=== PATIENT | male | born 2000 | race Caucasian/White ===

== ENCOUNTER 2021-06-27 22:23 | Emergency (ER) | payer MEDICAID ==
[~2021-06-27] VITALS: Ht 185.4 cm; Wt 84.0 kg
[2021-06-27 23:56] VITALS: BP 138/84
== END 2021-06-28 01:16 | disposition left against medical advice (07) ==
LOC: ER 22:23
DX: Z53.21 Procedure and treatment not carried out due to patient leaving prior to being seen by health care provider (principal)